=== PATIENT | female | born 1990 | race African-American/Black ===

== ENCOUNTER 2021-05-08 01:22 | Emergency (ER) | payer OTHER ==
[2021-05-08 01:35] VITALS: BP 100/75; PULSE 78; TEMP 98.5; BMI 28.3
[2021-05-08] MEDS ORDERED: BACITRACIN 15 GM TUBE TOPICAL OINTMENT TP ONE (02:34)
[2021-05-08] MEDS ORDERED: BACITRACIN 0.9 GM PACKET ONE (02:56)
== END 2021-05-08 03:45 | disposition home or self-care (01) ==
LOC: JER 01:22 → EDSEX 01:22 → JER 03:45
DX: T23.201A Burn of second degree of right hand, unspecified site, initial encounter (principal); X10.2XXA Contact with fats and cooking oils, initial encounter
CPT/HCPCS: 99283-25